=== PATIENT | female | born 1975 | race Caucasian/White ===

== ENCOUNTER → 2017-08-05 | Outpatient (CLI) | payer BC, OTHER ==
--- NOTE | 2017-08-09 07:47 | MM ---
Reason for exam: screening (asymptomatic). Baseline mammogram. History: Took hormonal contraceptives beginning at age 15. Physical Findings: Nurse did not find any significant physical abnormalities on exam. MG 3D Screening Mammo W/Cad Bilateral CC and MLO view(s) were taken. XCCL view(s) were taken of the left breast. The breast tissue is heterogeneously dense. This may lower the sensitivity of mammography. Palpable lymph node on left. There is no discrete abnormality. These results were verbally communicated with the patient and result sheet given to the patient on 08/05/17. ASSESSMENT: Benign, BI-RAD 2 RECOMMENDATION: Routine screening mammogram of both breasts in 1 year.
== END | disposition home or self-care (01) ==
LOC: RADMAMWWP 14:50
PROVIDERS: ATTEND Obstetrics & Gynecology
DX: Z12.31 Encounter for screening mammogram for malignant neoplasm of breast (principal)
CPT/HCPCS: 77063; 77067

== ENCOUNTER 2017-10-27 07:36 | Observation (INO) | payer BC, OTHER ==
[2017-10-27] MEDS ORDERED: NITROGLYCERIN OINT 1 INCH/GM PACKET TOPICAL STA (08:08)
[2017-10-27] MEDS ORDERED: ASPIRIN 81 MG PO STA (08:08)
--- NOTE | 2017-10-27 08:11 | ED ---
General Adult HPI - General Chief complaint: Chest Pain Stated complaint: Chest pain Time Seen by Provider: 10/27/17 07:40 Source: patient, RN notes reviewed Mode of arrival: wheelchair Limitations: no limitations - History of Present Illness Initial comments: This a 42-year-old female who presents to the emergency department complaining of chest pain with radiation into the shoulder down the arm and into the jaw. Patient states she is also mildly short of breath. Patient states it started last night. Patient states he continues today. Patient denies any diaphoresis. Patient patient states patient states she was nauseated this morning and vomited times one. Patient denies abdominal pain. Patient denies any diarrhea recently. Patient denies any recent fever chills or cough. Patient denies any calf pain or leg swelling. Patient denies headache patient denies numbness weakness. - Related Data Home Medications Medication Instructions Recorded Confirmed ALPRAZolam [Xanax] 0.25 mg PO Q12H PRN 10/27/17 10/27/17 Allergies Allergy/AdvReac Type Severity Reaction Status Date / Time levofloxacin [From Levaquin] Allergy Unknown Verified 10/27/17 08:29 Penicillins Allergy Swelling Verified 10/27/17 08:29 sertraline [From Zoloft] Allergy Hallucinati Verified 10/27/17 08:29 ons sulfamethoxazole Allergy Anaphylaxis Verified 10/27/17 08:29 [From Bactrim] trimethoprim [From Bactrim] Allergy Anaphylaxis Verified 10/27/17 08:29 Review of Systems ROS Statement: Those systems with pertinent positive or pertinent negative responses have been documented in the HPI. ROS Other: All systems not noted in ROS Statement are negative. Past Medical History Past Medical History: Hypertension History of Any Multi-Drug Resistant Organisms: None Reported Past Surgical History: Appendectomy, Orthopedic Surgery Additional Past Surgical History / Comment(s): uterine ablation shoulder surg r leg, pelvic fracture Past Psychological History: Anxiety, Depression Smoking Status: Current every day smoker Past Alcohol Use History: Rare Past Drug Use History: Marijuana General Exam - General Exam Comments Initial Comments: GENERAL: Patient is well-developed and well-nourished. Patient is nontoxic and well- hydrated and is in mild distress. ENT: Neck is soft and supple. No significant lymphadenopathy is noted. Oropharynx is clear. Moist mucous membranes. Neck has full range of motion without eliciting any pain. EYES: The sclera were anicteric and conjunctiva were pink and moist. Extraocular movements were intact and pupils were equal round and reactive to light. Eyelids were unremarkable. PULMONARY: Unlabored respirations. Good breath sounds bilaterally. No audible rales rhonchi or wheezing was noted. CARDIOVASCULAR: There is a regular rate and rhythm without any murmurs gallops or rubs. ABDOMEN: Soft and nontender with normal bowel sounds. No palpable organomegaly was noted. There is no palpable pulsatile mass. SKIN: Skin is clear with no lesions or rashes and otherwise unremarkable. NEUROLOGIC: Patient is alert and oriented x3. Cranial nerves II through XII are grossly intact. Motor and sensory are also intact. Normal speech, volume and content. Symmetrical smile. MUSCULOSKELETAL: Normal extremities with adequate strength and full range of motion. No lower extremity swelling or edema. No calf tenderness. LYMPHATICS: No significant lymphadenopathy is noted PSYCHIATRIC: Normal psychiatric evaluation. Normal interpersonal interactions appears functionally intact in deals appropriately with others. No signs of depression. No signs of anxiety. Limitations: no limitations Course Vital Signs 10/27/17 10/27/17 07:38 08:59 Temperature 99.0 F Pulse Rate 89 76 Respiratory 18 18 Rate Blood Pressure 153/111 136/86 O2 Sat by Pulse 100 98 Oximetry Medical Decision Making - Medical Decision Making EKG shows normal sinus rhythm at 85 bpm TN interval 136 dresses 88 QT interval 362 QTC is 4:30. Patient's EKG shows no acute ST segment elevation or depression. Patient had relief with nitroglycerin. Chest x-ray shows no acute abnormality. Patient is pain-free at this time. Started heparin on the patient because the unstable angina picture. I admitted the patient I spoke with because she agreed for the admission. I consult to cardiology. I continued heparin Nitropaste and aspirin on the floor. - Lab Data Result diagrams: 10/27/17 07:55 10/27/17 07:55 Lab Results 10/27/17 10/27/17 10/27/17 Range/Units 07:55 07:55 07:55 WBC 7.6 (3.8-10.6) k/uL RBC 4.91 (3.80-5.40) m/uL Hgb 14.7 (11.4-16.0) gm/dL Hct 42.5 (34.0-46.0) % MCV 86.6 (80.0-100.0) fL MCH 29.9 (25.0-35.0) pg MCHC 34.5 (31.0-37.0) g/dL RDW 12.6 (11.5-15.5) % Plt Count 286 (150-450) k/uL Neutrophils % 78 % Lymphocytes % 15 % Monocytes % 5 % Eosinophils % 1 % Basophils % 0 % Neutrophils # 6.0 (1.3-7.7) k/uL Lymphocytes # 1.1 (1.0-4.8) k/uL Monocytes # 0.4 (0-1.0) k/uL Eosinophils # 0.1 (0-0.7) k/uL Basophils # 0.0 (0-0.2) k/uL PT (9.0-12.0) sec INR (<1.2) APTT (22.0-30.0) sec Sodium 142 (137-145) mmol/L Potassium 4.4 (3.5-5.1) mmol/L Chloride 105 (98-107) mmol/L Carbon Dioxide 25 (22-30) mmol/L Anion Gap 12 mmol/L BUN 12 (7-17) mg/dL Creatinine 0.68 (0.52-1.04) mg/dL Est GFR (CKD-EPI)AfAm >90 (>60 ml/min/1.73 sqM) Est GFR (CKD-EPI)NonAf >90 (>60 ml/min/1.73 sqM) Glucose 99 (74-99) mg/dL Calcium 9.8 (8.4-10.2) mg/dL Magnesium 1.9 (1.6-2.3) mg/dL Total Bilirubin 0.6 (0.2-1.3) mg/dL AST 24 (14-36) U/L ALT 37 (9-52) U/L Alkaline Phosphatase 78 (38-126) U/L Total Creatine Kinase 60 (30-135) U/L CK-MB (CK-2) <0.2 (0.0-2.4) ng/mL CK-MB (CK-2) Rel Index Troponin I <0.012 (0.000-0.034) ng/mL Total Protein 7.1 (6.3-8.2) g/dL Albumin 4.4 (3.5-5.0) g/dL 10/27/17 Range/Units 07:55 WBC (3.8-10.6) k/uL RBC (3.80-5.40) m/uL Hgb (11.4-16.0) gm/dL Hct (34.0-46.0) % MCV (80.0-100.0) fL MCH (25.0-35.0) pg MCHC (31.0-37.0) g/dL RDW (11.5-15.5) % Plt Count (150-450) k/uL Neutrophils % % Lymphocytes % % Monocytes % % Eosinophils % % Basophils % % Neutrophils # (1.3-7.7) k/uL Lymphocytes # (1.0-4.8) k/uL Monocytes # (0-1.0) k/uL Eosinophils # (0-0.7) k/uL Basophils # (0-0.2) k/uL PT 10.2 (9.0-12.0) sec INR 1.0 (<1.2) APTT 24.9 (22.0-30.0) sec Sodium (137-145) mmol/L Potassium (3.5-5.1) mmol/L Chloride (98-107) mmol/L Carbon Dioxide (22-30) mmol/L Anion Gap mmol/L BUN (7-17) mg/dL Creatinine (0.52-1.04) mg/dL Est GFR (CKD-EPI)AfAm (>60 ml/min/1.73 sqM) Est GFR (CKD-EPI)NonAf (>60 ml/min/1.73 sqM) Glucose (74-99) mg/dL Calcium (8.4-10.2) mg/dL Magnesium (1.6-2.3) mg/dL Total Bilirubin (0.2-1.3) mg/dL AST (14-36) U/L ALT (9-52) U/L Alkaline Phosphatase (38-126) U/L Total Creatine Kinase (30-135) U/L CK-MB (CK-2) (0.0-2.4) ng/mL CK-MB (CK-2) Rel Index Troponin I (0.000-0.034) ng/mL Total Protein (6.3-8.2) g/dL Albumin (3.5-5.0) g/dL Critical Care Time Critical Care Time: Yes Total Critical Care Time: 35 Disposition Clinical Impression: Unstable angina pectoris Disposition: ADMITTED IP TO THIS HOSP Referrals: Brian Michel MD [Primary Care Provider] - 1-2 days Time of Disposition: 09:21
[2017-10-27 08:24] LABS: Basophils % (A) 0 %; Eosinophils # (A) 0.1 k/uL (0-0.7); Eosinophils % (A) 1 %; HCT 42.5 % (34.0-46.0); HGB 14.7 gm/dL (11.4-16.0); Lymphocytes # (A) 1.1 k/uL (1.0-4.8); Lymphocytes % (A) 15 %; MCH 29.9 pg (25.0-35.0); MCHC 34.5 g/dL (31.0-37.0); MCV 86.6 fL (80.0-100.0); Mean Platelet Volume 6.3; Monocytes # (A) 0.4 k/uL (0-1.0); Monocytes % (A) 5 %; Neutrophils % (A) 78 %; Platelet Count 286 k/uL (150-450); RBC 4.91 m/uL (3.80-5.40); RDW 12.6 % (11.5-15.5); WBC 7.6 k/uL (3.8-10.6)
--- NOTE | 2017-10-27 08:32 | XR ---
EXAMINATION TYPE: XR chest 2V DATE OF EXAM: 10/27/2017 COMPARISON: NONE HISTORY: Chest pain TECHNIQUE: Frontal and lateral views of the chest are obtained. FINDINGS: There is no focal air space opacity. No evidence for pneumothorax. No pleural effusion. The cardiac silhouette size is within normal limits. The osseous structures are grossly intact. IMPRESSION: 1. No acute cardiopulmonary process.
[2017-10-27 08:33] LABS: Partial Thromboplastin Time 24.9 sec (22.0-30.0); Prothrombin Time 10.2 sec (9.0-12.0)
[2017-10-27 08:46] LABS: ALT 37 U/L (9-52); AST 24 U/L (14-36); Albumin 4.4 g/dL (3.5-5.0); Alkaline Phosphatase 78 U/L (38-126); Anion Gap 12 mmol/L; Blood Urea Nitrogen 12 mg/dL (7-17); Calcium 9.8 mg/dL (8.4-10.2); Carbon Dioxide 25 mmol/L (22-30); Chloride 105 mmol/L (98-107); Glucose 99 mg/dL (74-99); Magnesium 1.9 mg/dL (1.6-2.3); Potassium 4.4 mmol/L (3.5-5.1); Sodium 142 mmol/L (137-145); Total Bilirubin 0.6 mg/dL (0.2-1.3); Total Protein 7.1 g/dL (6.3-8.2)
[2017-10-27 08:55] LABS: Creatine Kinase 60 U/L (30-135)
[2017-10-27 09:06] LABS: Creatine Kinase MB <0.2 ng/mL (0.0-2.4); Troponin I <0.012 ng/mL (0.000-0.034)
[2017-10-27] MEDS ORDERED: HEPARIN SODIUM,PORCINE 5,000 UNIT/ML 1 ML VIAL IV ONE (09:17)
[2017-10-27] MEDS ORDERED: NITROGLYCERIN SL TABS 0.4 MG TAB SUBLINGUAL PRN (09:22)
[2017-10-27] MEDS ORDERED: HEPARIN SODIUM,PORCINE/D5W PMX 25,000 UNIT in DEXTROSE/WATER 1 500ML.BAG IV SCH (09:30)
[2017-10-27] MEDS ORDERED: NITROGLYCERIN OINT 1 INCH/GM PACKET TOPICAL SCH (12:00)
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
[2017-10-27 15:15] LABS: Creatine Kinase 47 U/L (30-135)
[2017-10-27 15:26] LABS: Creatine Kinase MB <0.2 ng/mL (0.0-2.4); Troponin I <0.012 ng/mL (0.000-0.034)
[2017-10-27] MEDS ORDERED: LORazepam 2 MG/ML INJ IV STA (16:01)
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
[2017-10-27] MEDS: NICOTINE 14MG/24HR PATCH TRANSDERM SCH (17:13)
[2017-10-27 19:47] VITALS: RESP 16
[2017-10-27 20:14] LABS: D-Dimer 0.19 mg/L FEU (<0.60); Partial Thromboplastin Time 35.9 sec (22.0-30.0)
[2017-10-27 20:26] LABS: Creatine Kinase 50 U/L (30-135)
[2017-10-27 20:39] LABS: Creatine Kinase MB <0.2 ng/mL (0.0-2.4); Troponin I <0.012 ng/mL (0.000-0.034)
--- NOTE | 2017-10-27 21:17 | MR ---
EXAMINATION TYPE: MR brain wo/w con DATE OF EXAM: 10/27/2017 COMPARISON: NONE HISTORY: numbness left face/arm; leg weakness improved TECHNIQUE: Multiplanar, multisequence images of the brain and brainstem is performed without and with IV contrast, utilizing 9 mL intravenous Gadavist . FINDINGS: Diffusion weighted images demonstrate no evidence of a recent infarct or other diffusion abnormality. Seen only on the T2 FLAIR sequence is a 2 mm nonspecific T2 hyperintensity in the left hemipelvis jus t above the level of the brachium pontis. This is not seen on the diffusion, T2, or T1-weighted seque nces and does not contrast enhance. This left hemipontine finding is the only white matter T2 hyperin tensity seen throughout the study. The ventricular system and cisternal spaces are normal in size and appearance. The brain volume is age appropriate. Midline structures demonstrate normal morphology. The craniocervical junction appears within normal limits. Post contrast images demonstrate no abnormal enhancement. The dural venous sinuses appear patent. The visualized sinuses are clear and the globes are intact. IMPRESSION: 1. NO DEFINITE ACUTE PROCESS. 2. Nonspecific 2 mm left hemithorax unchanged T2 FLAIR hyperintensity.
[2017-10-28 03:52] LABS: Cholesterol 193 mg/dL (<200); HDL Cholesterol 43 mg/dL (40-60); LDL Cholesterol,Calculated 132 mg/dL (0-99); Triglycerides 90 mg/dL (<150)
--- NOTE | 2017-10-28 07:46 | ECHOF ---
Referral Reason: MEASUREMENTS -------- HEIGHT: 160.0 cm WEIGHT: 91.6 kg BP: 134/84 IVSd: 1.0 cm (0.6 - 1.1) LVIDd: 4.2 cm (3.9 - 5.3) LVPWd: 0.9 cm (0.6 - 1.1) IVSs: 1.2 cm LVIDs: 3.1 cm LVPWs: 1.4 cm Ao Diam: 3.0 cm (2.0 - 3.7) AV Cusp: 2.2 cm (1.5 - 2.6) LA Diam: 3.6 cm (2.7 - 3.8) MV EXCURSION: 18.395 mm (> 18.000) MV EF SLOPE: 113 mm/s (70 - 150) EPSS: 0.3 cm MV E Antonio: 0.95 m/s MV DecT: 228 ms MV A Antonio: 0.75 m/s MV E/A Ratio: 1.27 RAP: 5.00 mmHg RVSP: 15.39 mmHg FINDINGS -------- Sinus rhythm. This was a technically good study. The left ventricular size is normal. Left ventricular wall thickness is normal. Overall left vent ricular systolic function is normal with, an EF between 55 - 60 %. The right ventricle is normal in size and function. The left atrium is normal in size. The right atrium is normal in size. The aortic valve is trileaflet, and appears structurally normal. No aortic stenosis or regurgitation. The mitral valve is normal. There is trace mitral regurgitation. The tricuspid valve appears structurally normal. Trace tricuspid regurgitation present. There is no evidence of pulmonary hypertension. The right ventricular systolic pressure, as measured by Dopp ler, is 15.39mmHg. There is no pulmonic regurgitation present. The aortic root size is normal. Normal inferior vena cava with normal inspiratory collapse consistent with estimated right atrial pre ssure of 5 mmHg. There is no pericardial effusion. CONCLUSIONS -------- 1. Sinus rhythm. 2. This was a technically good study. 3. The left ventricular size is normal. 4. Left ventricular wall thickness is normal. 5. Overall left ventricular systolic function is normal with, an EF between 55 - 60 %. 6. The left atrium is normal in size. 7. The aortic valve is trileaflet, and appears structurally normal. No aortic stenosis or regurgitati on. 8. There is trace mitral regurgitation. 9. Trace tricuspid regurgitation present. 10. There is no evidence of pulmonary hypertension. 11. There is no pulmonic regurgitation present. 12. The aortic root size is normal. 13. Normal inferior vena cava with normal inspiratory collapse consistent with estimated right atrial pressure of 5 mmHg. 14. There is no pericardial effusion. DESIGN AND SALES CONSULTANT: Yessenia Strickland RDCS
[2017-10-28] MEDS ORDERED: ASPIRIN 325 MG TAB PO SCH (09:00)
[2017-10-28] MEDS ORDERED: ASPIRIN 81 MG PO SCH (09:00)
[2017-10-28] MEDS: NICOTINE 14MG/24HR PATCH TRANSDERM SCH (11:26)
--- NOTE | 2017-10-28 13:27 | P.PN ---
Subjective Mrs. Leonard is a pleasant 42-year-old female past medical history significant for hypertension, chronic tobacco use, obesity and family history or premature cardiac disease. She denies history of coronary artery disease and has never seen a credit control officer for any reason. We have been asked to see her in consultation for complaints of chest pain. She states last night after eating dinner she laid down to relax and started feeling a very tight squeezing sensation in the left precordial region this radiated down the left arm and up into the left neck. She became short of breath, nauseated, dizzy and felt palpitations in her chest. It felt as if her heart was racing. She did not check her pulse time. The symptoms persisted intermittently throughout the night with no specific alleviating or aggravating factors. This morning when she woke up the nausea he came intensive 5 and she actually vomited times one. This prompted her to come to the hospital for evaluation. Her symptoms seemed to subside once she arrived at the hospital. Upon arrival she was initiated on a heparin infusion given Nitropaste and aspirin. She has been chest pain-free since admission. EKG reveals sinus mechanism with no acute ST or T-wave abnormalities. Chest x-ray is negative for an acute cardiopulmonary process. Laboratory data reviewed, hemoglobin 14.7, platelets 286, sodium 142, potassium 4.4 magnesium 1.9, creatinine 0.68, cardiac enzymes negative 1. Daily medications include Xanax 0.25 mg as needed. 10/28/2017 Mrs. Leonard is seen and examined. She is in no acute distress. No further symptoms of chest pain. Echocardiogram revealed preserved LV systolic function with EF 55-60%. Stress echocardiogram performed this morning is negative for stress induced ischemic changes. Blood pressure 143/71 heart rate 94. She had a persistent headache and underwent an MRI which was unremarkable. Objective - Vital Signs Vital signs: Vital Signs Temp 99.1 F 10/28/17 11:59 Pulse 94 10/28/17 12:00 Resp 16 10/28/17 12:00 BP 143/71 10/28/17 11:59 Pulse Ox 96 10/28/17 11:59 Intake & Output 10/27/17 10/28/17 10/28/17 18:59 06:59 18:59 Intake Total 400 120 Balance 400 120 Weight 91.626 kg 91.626 kg Intake: IV 120 0.9 60 Heparin Sodium,Porcine/ 60 D5w Pmx 25,000 unit In Dextrose/Water 1 500ml. bag @ 10.92 UNITS/KG/HR 20.01 mls/hr IV .Q24H ELIZABETH Rx#:[id number] Oral 400 Other: Voiding Method Toilet Toilet # Voids 1 1 3 - Exam GENERAL: Well-appearing, well-nourished and in no acute distress. NECK: Supple without JVD or thyromegaly. LUNGS: Breath sounds clear to auscultation bilaterally. Respiration equal and unlabored. No wheezes, rales or rhonchi. HEART: Regular rate and rhythm without murmurs, rubs or gallops. S1 and S2 heard. EXTREMITIES: Normal range of motion, no edema. No clubbing or cyanosis. Peripheral pulses intact and strong. - Labs CBC & Chem 7: 10/27/17 07:55 10/27/17 07:55 Labs: Abnormal Lab Results - Last 24 Hours (Table) 10/27/17 10/27/17 Range/Units 07:55 19:37 APTT 35.9 H (22.0-30.0) sec LDL Cholesterol, Calc 132 H (0-99) mg/dL Assessment and Plan Assessment: ASSESSMENT 1. Chest pain, atypical. 2. History of hypertension not currently on any medical therapy. 3. Chronic tobacco abuse 4. Family history of premature coronary artery disease. PLAN Stable from a cardiac perspective. Smoking cessation discussed and highly recommended. Follow-up with Dr. Oliveira in 2-3 weeks. Nurse Practitioner note has been reviewed, I agree with a documented findings and plan of care. Patient was seen and examined.
--- NOTE | 2017-10-28 14:20 | ECHOS ---
STRESS ECHOCARDIOGRAM INDICATIONS: Chest pain. MEDICATIONS: None. BASELINE HEART RATE: 92 BASELINE BLOOD PRESSURE: 131/93 MAXIMUM HEART RATE: 157 MAXIMUM BLOOD PRESSURE: 164/100 85% MPHR: 150 100% MPHR: 176 METS: 10.3 MAXIMUM STAGE REACHED: II TOTAL EXERCISE TIME: 8:38 CLINICAL INFORMATION: Patient was exercised for a total of 9 minutes. Peak heart rate of 157 was achieved. Maximum blood pressure of 164/100 mmHg was noted. Resting EKG shows normal sinus rhythm with normal MI interval and QRS duration and normal ST-T waves. No ST-segment depression suggestive of ischemia is noted. The baseline echocardiographic images reveal normal left ventricular chamber size with normal left ventricular systolic function. In the immediate post exercise period, normal increase in the wall thickness and contractility is noted. FINAL IMPRESSION: 1. This stress echocardiographic study is negative for stress-induced ischemia. 2. EKG portion of the stress test is not suggestive of ischemia. MMODL / IJN: [id number] /
[2017-10-28 19:53] VITALS: BP 142/94; PULSE 94; TEMP 98.5
[2017-10-28] MEDS ORDERED: ATORVASTATIN 10 MG TAB PO SCH (21:00)
--- NOTE | 2017-10-29 06:51 | DS ---
DISCHARGE SUMMARY DATE OF ADMISSION: 10/27/17. DATE OF DISCHARGE: 10/28/17. FINAL DIAGNOSES: 1. Left-sided chest pain, could be musculoskeletal. 2. Chronic nicotine dependence. Patient is a cigarette smoker. 3. Anxiety, not otherwise specified. HOSPITAL COURSE: This patient presented with some nonspecific chest pain and seen by Cardiology. 2D echocardiogram was unremarkable. The patient did undergo stress echocardiogram that was unremarkable. The patient had symptoms of pain in both the hips and lower extremities and also some numbness of the left side of the face and left arm. I did a MRI of the brain and had some nonspecific findings. I consulted Dr. Nagel. Patient's symptoms have completely resolved. I got a call from nurse that Dr. Nagel had seen the patient and was okayed for the patient to be discharged. Formal consultation was pending. I did talk to the patient and the . The patient has no further neuro deficits. I did tell the patient to follow up with Dr. Nagel. The patient's troponins were negative. DISCHARGE MEDICATIONS: 1. Xanax 0.25 p.o. q.12 p.r.n. 2. Lipitor 10 mg q.h.s. 3. Nicotine 14 mg patch. FOLLOWUP: Follow up with Dr. Oliveira in 2 weeks, Dr. Michel in 1 week, Dr. Nagel in 1-2 weeks. MMMPL / IJN: [id number] /
--- NOTE | 2017-10-29 13:48 | CONS ---
CONSULTATION DATE OF SERVICE: 10/28/2017 CHIEF COMPLAINT: Numbness. HISTORY OF PRESENT ILLNESS: The patient is a pleasant 42-year-old, female, who is being evaluated today on 10/28/2017 by the neurology service per the request of Dr. Yin for numbness and tingling. The patient stated that she started having numbness involving her left face and then this spread to her left upper extremity. The symptoms started yesterday and remained present until earlier today. She had also been complaining of some lower extremity pain with no numbness or tingling present there. She also had some shortness of breath. A laboratory workup was done, which showed a normal CBC, comprehensive metabolic profile and cardiac enzymes. An MRI of the brain with and without contrast was done, which showed a 2 mm lesion involving the left susanne with no abnormal enhancement seen. I did review the actual images and there was also minimal white matter changes involving the deep white matter of the left frontal lobe. Her fasting lipid panel was normal except for elevated LDL at 132. At the time of my evaluation, the patient is lying in her bed and appears to be in no acute distress. She denies any current neurological symptoms. She has been started on aspirin 81 mg daily. PAST MEDICAL HISTORY: Hypertension, irritable bowel syndrome, orthopedic surgeries, uterine ablation, appendectomy, history of depression and anxiety disorder. SOCIAL HISTORY: The patient smokes 1/2 pack of cigarettes daily. She occasionally smokes marijuana. She denies any alcohol or drug use. FAMILY HISTORY: Positive for hypertension and dyslipidemia. HOME MEDICATIONS: Xanax. ALLERGIES: LEVAQUIN, PENICILLIN, ZOLOFT, BACTRIM. REVIEW OF SYSTEM: CONSTITUTIONAL: Positive for fatigue. EYES: Negative. ENT: Negative. CARDIOVASCULAR: Negative. RESPIRATORY: As mentioned above. NEUROLOGICAL: As mentioned above. GASTROINTESTINAL: Positive for irritable bowel syndrome. GENITOURINARY: Negative. PSYCHIATRIC: Positive for history of depression and anxiety disorder. MUSCULOSKELETAL: Positive for occasional joint pain. DERMATOLOGICAL: Negative. ENDOCRINE: Negative. PHYSICAL EXAM: Vital signs show a temperature of 98.7, pulse 84, respirations 16, blood pressure 129/83. GENERAL APPEARANCE: The patient is a well-developed female who appears to be in no acute distress. HEENT: Normocephalic, atraumatic, no facial asymmetry is seen. Extraocular muscles are intact. Neck is supple with no masses felt. CARDIOVASCULAR: Regular rate and rhythm. ABDOMEN: Nontender, nondistended. Extremities showed no edema or clubbing. NEUROLOGICAL EXAM: The patient is alert, aware and oriented x3. Speech and language are normal. Strength is full in all 4 extremities. Sensory exam was normal to light touch in all 4 extremities. No pronator drift is seen. No tremors or seizure-like activity is seen. No facial asymmetry is seen on cranial nerve testing. IMPRESSION: 1. Left-sided numbness, resolved. 2. Nonspecific white matter brain lesions. 3. Dyslipidemia. 4. Tobacco dependence. RECOMMENDATION: The patient's neurological symptoms have resolved as mentioned above. The differential diagnosis is a transient ischemic attack or demyelinating disorder. I had a lengthy discussion with the patient regarding both differential diagnoses. Her MRI of the brain did show nonspecific white matter changes involving the left frontal lobe when I reviewed the images. There was also a nonenhancing lesion involving the left susanne which measured 2 mm. The patient will need further workup, which will be done in outpatient setting including CSF workup for demyelinating disorders. If this was an ischemic event, the patient has been started on aspirin 81 mg daily. I will also start her on Lipitor 10 mg daily. Further workup will be done in outpatient setting. The patient was told to seek immediate medical attention if any further symptoms occur. From a neurology standpoint, the patient is cleared for discharge. Continue the rest of your current workup and management. Thank you for allowing me to participate in the care of your patient. If you have any questions, please feel free to contact me. MMODL / IJN: [id number] /
--- NOTE | 2017-10-29 17:39 | EST ---
EXERCISE STRESS DATE OF SERVICE: 10/28/17 STRESS ECHO REPORT: Patient was exercised for a total period of 8 minutes 38 seconds. The peak heart rate of 157 was achieved. Maximum blood pressure of 164/100 mmHg was noted. The resting EKG shows normal sinus rhythm with normal clear interval and QRS duration and normal ST-T waves. No ST-segment depression suggestive of ischemia is noted. The baseline echocardiographic images reveals normal left ventricular chamber size with normal left ventricular systolic function. In the immediate post exercise period, normal increase in the wall thickness and contractility is noted. FINAL IMPRESSION: This stress echocardiographic study is negative for stress-induced ischemia. EKG portion of the stress test is not suggestive of ischemia. MMODL / IJN: [id number] /
== END 2017-10-28 20:20 | disposition home or self-care (01) ==
LOC: EC 07:36 → 3OBS 09:31
PROVIDERS: ADMIT Hospitalist; ATTEND Hospitalist
DX: R07.89 Other chest pain (principal); I10 Essential (primary) hypertension; K58.9 Irritable bowel syndrome, unspecified; E78.5 Hyperlipidemia, unspecified; F17.210 Nicotine dependence, cigarettes, uncomplicated; F32.9 Major depressive disorder, single episode, unspecified; F41.9 Anxiety disorder, unspecified; F12.90 Cannabis use, unspecified, uncomplicated; Z82.49 Family history of ischemic heart disease and other diseases of the circulatory system; Z88.1 Allergy status to other antibiotic agents; Z88.0 Allergy status to penicillin; Z88.2 Allergy status to sulfonamides; Z88.8 Allergy status to other drugs, medicaments and biological substances
CPT/HCPCS: 96376; 96374; 99281; 36415; 94760; 93005; 93306; 93351; 85379; 80061; 80053; 85652; 82550; 82553; 83735; 84484; 85025; 85610; 85730; 71046; 70553; G0378 ×2; S4990 ×2; J2060; J1644 ×2; A9581

== ENCOUNTER 2019-05-30 16:10 | Emergency (ER) | payer BC, OTHER ==
[2019-05-30 16:21] VITALS: TEMP 98.2
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
[2019-05-30 17:04] VITALS: RESP 18
--- NOTE | 2019-05-30 17:15 | XR ---
EXAMINATION TYPE: XR chest 2V DATE OF EXAM: 05/30/2019 COMPARISON: 10/27/2017 HISTORY: Chest pain TECHNIQUE: 2 views FINDINGS: Heart and mediastinum are normal. Lungs are clear. Diaphragm is normal. Bony thorax appears normal. IMPRESSION: Normal chest. No change.
[2019-05-30 17:22] LABS: Basophils % (A) 0 %; Eosinophils # (A) 0.1 k/uL (0-0.7); Eosinophils % (A) 2 %; HCT 40.3 % (34.0-46.0); HGB 13.6 gm/dL (11.4-16.0); Lymphocytes # (A) 1.7 k/uL (1.0-4.8); Lymphocytes % (A) 21 %; MCH 30.1 pg (25.0-35.0); MCHC 33.7 g/dL (31.0-37.0); MCV 89.3 fL (80.0-100.0); Mean Platelet Volume 6.6; Monocytes # (A) 0.3 k/uL (0-1.0); Monocytes % (A) 4 %; Neutrophils # (A) 5.8 k/uL (1.3-7.7); Neutrophils % (A) 72 %; Platelet Count 295 k/uL (150-450); RBC 4.51 m/uL (3.80-5.40); RDW 12.8 % (11.5-15.5)
[2019-05-30 17:24] LABS: ALT 18 U/L (4-34); AST 23 U/L (14-36); African American GFR (CKD) >90 (>60 ml/min/1.73 sqM); Albumin 4.4 g/dL (3.5-5.0); Alkaline Phosphatase 77 U/L (38-126); Anion Gap 9 mmol/L; Blood Urea Nitrogen 12 mg/dL (7-17); Calcium 9.8 mg/dL (8.4-10.2); Carbon Dioxide 26 mmol/L (22-30); Chloride 105 mmol/L (98-107); Glucose 98 mg/dL (74-99); Magnesium 1.9 mg/dL (1.6-2.3); Non-African American GFR(CKD) >90 (>60 ml/min/1.73 sqM); Potassium 4.1 mmol/L (3.5-5.1); Sodium 140 mmol/L (137-145); Total Bilirubin 0.4 mg/dL (0.2-1.3); Total Protein 7.5 g/dL (6.3-8.2)
[2019-05-30 17:29] LABS: INR 0.9 (<1.2); Prothrombin Time 9.9 sec (9.0-12.0)
--- NOTE | 2019-05-30 19:13 | CT ---
EXAMINATION TYPE: CT brain wo con DATE OF EXAM: 05/30/2019 COMPARISON: None HISTORY: dizziness CT DLP: 1094.4 mGycm Automated exposure control for dose reduction was used. Ventricles and sulci appear normal. There is no mass effect nor midline shift. There is no sign of in tracranial hemorrhage. Calvarium is intact. There is no evidence of cerebral edema. There is large mu cus retention cyst right maxillary sinus. IMPRESSION: Negative CT scan of the brain. Mucus retention cyst right maxillary sinus.
[2019-05-30 20:21] VITALS: BP 130/89; PULSE 77
== END 2019-05-30 20:26 | disposition home or self-care (01) ==
LOC: EC 16:10
DX: R53.1 Weakness (principal); M79.10 Myalgia, unspecified site; R05 Cough; R53.81 Other malaise; R07.89 Other chest pain; R51 Headache; R20.0 Anesthesia of skin; I10 Essential (primary) hypertension; F17.200 Nicotine dependence, unspecified, uncomplicated; Z88.0 Allergy status to penicillin; Z88.1 Allergy status to other antibiotic agents; Z88.2 Allergy status to sulfonamides; Z88.8 Allergy status to other drugs, medicaments and biological substances
CPT/HCPCS: 36415; 70450; 71046; 80053; 83690; 83735; 84484; 85025; 85610; 85730; 87502; 93005; 99285

== ENCOUNTER 2021-04-22 11:00 | Emergency (ER) | payer BC, OTHER ==
[2021-04-22 11:07] VITALS: RESP 18
[2021-04-22 11:30] LABS: Basophils # (A) 0.1 k/uL (0-0.2); Basophils % (A) 1 %; Eosinophils # (A) 0.1 k/uL (0-0.7); Eosinophils % (A) 2 %; HCT 40.3 % (34.0-46.0); HGB 13.9 gm/dL (11.4-16.0); Lymphocytes # (A) 1.6 k/uL (1.0-4.8); Lymphocytes % (A) 22 %; MCHC 34.6 g/dL (31.0-37.0); MCV 86.9 fL (80.0-100.0); Mean Platelet Volume 6.8; Monocytes # (A) 0.3 k/uL (0-1.0); Monocytes % (A) 4 %; Neutrophils # (A) 5.2 k/uL (1.3-7.7); Neutrophils % (A) 72 %; Platelet Count 271 k/uL (150-450); RBC 4.64 m/uL (3.80-5.40); RDW 12.3 % (11.5-15.5); WBC 7.3 k/uL (3.8-10.6)
[2021-04-22 11:39] LABS: INR 0.9 (<1.2); Partial Thromboplastin Time 23.4 sec (22.0-30.0); Prothrombin Time 9.9 sec (9.0-12.0)
[2021-04-22 11:54] LABS: ALT 20 U/L (4-34); AST 26 U/L (14-36); African American GFR (CKD) >90 (>60 ml/min/1.73 sqM); Albumin 4.3 g/dL (3.5-5.0); Alkaline Phosphatase 70 U/L (38-126); Anion Gap 8 mmol/L; Blood Urea Nitrogen 10 mg/dL (7-17); Calcium 9.8 mg/dL (8.4-10.2); Carbon Dioxide 26 mmol/L (22-30); Chloride 105 mmol/L (98-107); Glucose 97 mg/dL (74-99); Magnesium 2.1 mg/dL (1.6-2.3); Non-African American GFR(CKD) 85 (>60 ml/min/1.73 sqM); Potassium 4.2 mmol/L (3.5-5.1); Sodium 139 mmol/L (137-145); Total Bilirubin 0.4 mg/dL (0.2-1.3); Total Protein 7.2 g/dL (6.3-8.2)
--- NOTE | 2021-04-22 13:44 | XR ---
EXAMINATION TYPE: XR chest 2V DATE OF EXAM: 04/22/2021 COMPARISON: Chest x-ray May 30, 2019 HISTORY: Cough and congestion. TECHNIQUE: Frontal and lateral views of the chest are obtained. FINDINGS: Improved inspiration current study. There is no suspicious focal air space opacity, pleural effusion, or pneumothorax seen. The cardiac silhouette size is stable and within normal limits. T he osseous structures are intact. IMPRESSION: No acute pulmonary process.
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
[2021-04-22 21:09] VITALS: BP 151/96; PULSE 68; TEMP 98.7
== END 2021-04-22 21:09 | disposition home or self-care (01) ==
LOC: EC 11:00
DX: R07.89 Other chest pain (principal); R10.13 Epigastric pain; R06.02 Shortness of breath; I10 Essential (primary) hypertension; Z88.0 Allergy status to penicillin; Z88.1 Allergy status to other antibiotic agents; Z88.2 Allergy status to sulfonamides; Z88.8 Allergy status to other drugs, medicaments and biological substances; Z79.899 Other long term (current) drug therapy
CPT/HCPCS: 36415; 71046; 80053; 83735; 84484; 85025; 85610; 85730; 93005; 99285